=== PATIENT | female | born 1995 | race Asian ===

== ENCOUNTER 2016-12-24 09:19 | Emergency (ER) | payer OTHER ==
[~2016-12-24] VITALS: Ht 157.5 cm; Wt 54.4 kg
[2016-12-24] MEDS ORDERED: PROVENTIL IN (09:44)
== END 2016-12-24 10:11 | disposition home or self-care (01) ==
LOC: ED 09:19
DX: J02.0 Streptococcal pharyngitis (principal)
CPT/HCPCS: 99282